=== PATIENT | female | born 1985 | race Caucasian/White ===

== ENCOUNTER 2017-06-03 20:43 | Emergency (ER) | payer SELFPAY ==
[2017-06-03 20:54] VITALS: BP 125/77; PULSE 59; TEMP 97.9; BMI 22.1
--- NOTE | 2017-06-03 21:23 | PDOC ---
History of Present Illness - General Chief Complaint: Pain, Acute Stated Complaint: INJURY Time Seen by Provider: 06/03/17 21:09 History Source: Patient Exam Limitations: No Limitations - History of Present Illness Initial Comments: 06/03/17 21:20 32 yr female tripped and fell 2 days ago running caused abrasion to her left wrist. Pt had continued pain so she went to urgent care had negative xrays (pt has the disc and copy of the report) and was given antibiotics for skin infection. Pt was told to come to ER for evaluation. pt has no fever no chills no medical history or allergies. 06/03/17 21:35 Occurred: reports: other (2 days ago ) Past History - Past Medical History Allergies/Adverse Reactions: Allergies Allergy/AdvReac Type Severity Reaction Status Date / Time No Known Allergies Allergy Verified 06/03/17 20:50 Home Medications: Ambulatory Orders NK [No Known Home Medication] 06/03/17 - Suicide/Smoking/Psychosocial Hx Smoking History: Never smoked Review of Systems - Review of Systems Able to Perform ROS?: Yes Is the patient limited Bhutanese proficient: No Constitutional: No: Symptoms Reported HEENTM: No: Symptoms Reported Respiratory: No: Symptoms reported Cardiac (ROS): No: Symptoms Reported ABD/GI: No: Symptoms Reported : No: Symptoms Reported Musculoskeletal: No: Symptoms Reported Integumentary: Yes: Symptoms Reported *Physical Exam - Vital Signs Last Vital Signs Temp Pulse Resp BP Pulse Ox 97.9 F 59 L 16 125/77 100 06/03/17 20:45 06/03/17 20:45 06/03/17 20:45 06/03/17 20:45 06/03/17 20:45 - Physical Exam General Appearance: Yes: Nourished, Appropriately Dressed HEENT: positive: EOMI, ROCÍO Neck: positive: Supple Respiratory/Chest: positive: Lungs Clear, Normal Breath Sounds Cardiovascular: positive: Regular Rhythm, Regular Rate Extremity: positive: Normal Capillary Refill, Tender (bruise over the distal ulan , nv intact moves all 5 digits, strength intact, pain with flexion of the wrist) Integumentary: positive: Bruising, Other (abrasion approioxmately [id number] oval shaped over the distal ulna with granulated yellow tissue mild erythema no surrounding abscess or cellulitus) Neurologic: positive: Fully Oriented, Alert, Normal Mood/Affect, Normal Response , Motor Strength 5/5 Procedures - Additional Procedures Progress: 06/03/17 21:37 wound has anitbiotic cream in place and a kurlex gauze. , I have replaced with large bandaid Medical Decision Making - Medical Decision Making 06/03/17 21:38 cc: abrasion s/p fall 2 days ago neg fever neg chills nv intact had negative xrays done in urgent care today (pt showed me copy of the report) pt placed on antibiotics pt will be referred to hand specialist for OP follow up. pt and her agree with the plan of care all questions asked and answered no indication for further treatment at this time pt was placed on bactrim, keflex and bactroban *DC/Admit/Observation/Transfer Diagnosis at time of Disposition: Abrasion, wrist w/o infection - Discharge Dispostion Disposition: HOME Condition at time of disposition: Good - Referrals Referrals: Santiago Garcia MD [Staff Physician] - - Patient Instructions Additional Instructions: keep the wound clean and dry with soap and water apply the bactroban ointment twice a day and keep covered when at work and when sleeping, air out in between take motrin as needed for pain follow with the hand specialist next week call tomorrow to set up appointment Return to ER for any worsening pain
== END 2017-06-03 21:42 | disposition home or self-care (01) ==
LOC: JERFT 20:43
DX: S60.812A Abrasion of left wrist, initial encounter (principal); W18.39XA Other fall on same level, initial encounter; Y93.02 Activity, running; Y92.89 Other specified places as the place of occurrence of the external cause; Y99.8 Other external cause status
CPT/HCPCS: 99281-25